=== PATIENT | male | born 1990 | race Caucasian/White ===

== ENCOUNTER 2020-06-28 14:06 | Emergency (ER) | payer OTHER ==
[~2020-06-28] VITALS: Ht 172.7 cm; Wt 85.7 kg
[2020-06-28 15:21] VITALS: BP 156/75
== END 2020-06-28 15:22 | disposition home or self-care (01) ==
LOC: M.ERS 14:06
DX: R51.9 Headache, unspecified (principal); Z20.828 Contact with and (suspected) exposure to other viral communicable diseases

== ENCOUNTER 2021-01-13 00:17 | Emergency (ER) | payer OTHER ==
[~2021-01-13] VITALS: Ht 172.7 cm; Wt 102.1 kg
[2021-01-13] MEDS ORDERED: TRAMADOL 50 MG50 MG PO (01:33)
[2021-01-13] MEDS ORDERED: BACTRIM DS TAB1 EACH PO (01:33)
[2021-01-13 01:40] VITALS: BP 130/70
== END 2021-01-13 01:40 | disposition home or self-care (01) ==
LOC: M.ERS 00:17
DX: S91.331A Puncture wound without foreign body, right foot, initial encounter (principal); W22.8XXA Striking against or struck by other objects, initial encounter; Y93.89 Activity, other specified; Y92.89 Other specified places as the place of occurrence of the external cause; Y99.8 Other external cause status